=== PATIENT | male | born 1985 | race Caucasian/White ===

== ENCOUNTER → 2018-05-22 | Outpatient (CLI) | payer OTHER | LOC: M LRY 15:01 | DX: R10.811 Right upper quadrant abdominal tenderness (principal); M51.36 Other intervertebral disc degeneration, lumbar region | CPT/HCPCS: 72040 ==

== ENCOUNTER → 2018-05-28 | Outpatient (REF) | payer OTHER ==
[2018-05-28 14:06] LABS: SEMEN APPEARANCE OPAQUE (OPAQUE); SEMEN VISCOSITY LIQUID (LIQUID); SEMEN VOLUME 4.2 ml (4.0-5.0); SPERM CONCENTRATION 130.1 M/ml (>=15.0); WBC CONCENTRATION <=1 M/ml (<=1 M/ml)
[2018-05-28 14:07] LABS: SPERM# 546.3 M/Ejac (>=39); TOTAL FUNCTIONAL 71.2 M/Ejac.; TOTAL PROGRESSIVE SPERM 269.1 M/Ejac.
== END ==
LOC: M LAB REF 13:59
DX: Z31.41 Encounter for fertility testing (principal)

== ENCOUNTER → 2020-12-01 | Outpatient (CLI) | payer OTHER ==
[~2020-12-01] MED LIST: ALLE12TA31 PO
== END ==
LOC: M LABSMTC 12:54
PROVIDERS: ATTEND Anesthesiology
DX: Z01.812 Encounter for preprocedural laboratory examination (principal); Z11.52 Encounter for screening for COVID-19

== ENCOUNTER 2020-12-06 07:21 | Day surgery (SDC) | payer OTHER ==
[~2020-12-06] VITALS: Ht 175.3 cm; Wt 93.8 kg
[~2020-12-06 07:21] MED LIST changes: +LIDOCAINE 1% MDV 20ML VIAL SQ PRN; +LR 1,000 ML IV ONE
[2020-12-06] MEDS ORDERED: LIDOCAINE W/EPINEPHRINE 1% 20ML VIAL As Ordered ONE (08:02)
[2020-12-06] MEDS ORDERED: EPINEPHrine 1MG/ML INJ 30ML MD-VIAL As Ordered ONE (08:03)
[2020-12-06] MEDS ORDERED: METHYLENE BLUE 0.5% (5MG/ML) 10 ML AMP (PROVAYBLUE) As Ordered ONE (08:03)
[2020-12-06] MEDS ORDERED: ACETAMINOPHEN 1000MG 100ML IV BTL (OFIRMEV) (J0131 PER 10MG) As Ordered ONE ×2 (08:18→08:52)
[2020-12-06] MEDS ORDERED: ROCURONIUM BROMIDE 50 MG/5 ML VIAL As Ordered ONE (08:18)
[2020-12-06] MEDS ORDERED: MIDAZOLAM INJ 2MG/2ML VIAL (J2250 PER 1MG) As Ordered ONE (08:18)
[2020-12-06] MEDS ORDERED: LIDOCAINE 2% 100MG/5ML SDV (FOR ANES.) As Ordered ONE (08:18)
[2020-12-06] MEDS ORDERED: propofoL 200 MG/20 ML VIAL As Ordered ONE (08:18)
[2020-12-06] MEDS ORDERED: SUGAMMADEX SODIUM 500 MG/5 ML VIAL (BRIDION) As Ordered ONE (08:18)
[2020-12-06] MEDS ORDERED: ONDANSETRON 4MG/2ML VIAL As Ordered ONE (08:18)
[2020-12-06] MEDS ORDERED: dexameTHASONE 4 MG/ML 1ML VIAL (J1100 PER 1MG) As Ordered ONE (08:18)
[2020-12-06] MEDS ORDERED: fentaNYL 100 MCG/2 ML INJECTION (J3010) As Ordered ONE (08:19)
[2020-12-06] MEDS ORDERED: LACRILUBE (AKWA TEARS) OPHTH OINT 3.5 GM As Ordered ONE (08:23)
[2020-12-06] MEDS ORDERED: METOCLOPRAMIDE INJ 10MG/2ML VIAL (J2765 PER 1) IV PRN (09:35)
[2020-12-06] MEDS ORDERED: LR 1,000 ML IV SCH ×2 (09:35→10:35)
[2020-12-06] MEDS ORDERED: ONDANSETRON 4MG/2ML VIAL IV PRN (09:35)
[2020-12-06] MEDS ORDERED: ACETAMINOPH W/CODEINE #3 TAB UD PO PRN (09:40)
[2020-12-06] MEDS: fentaNYL 100 MCG/2 ML INJECTION (J3010) IV PRN ×2 (09:45→10:00)
--- NOTE | 2020-12-06 10:25 | RO ---
OPERATIVE NOTE DATE OF OPERATION: 12/06/2020 PREOPERATIVE DIAGNOSES: 1. Nasoseptal deviation. 2. Chronic rhinitis. POSTOPERATIVE DIAGNOSES: 1. Nasoseptal deviation. 2. Chronic rhinitis. OPERATIVE PROCEDURES: 1. Septoplasty. 2. Bilateral turbinectomy. SURGEON: Abhijit Spear M.D. WIDE AREA NETWORK ENGINEER: None. ANESTHESIA: General. DESCRIPTION OF PROCEDURE: Under general anesthesia, the patient was intubated. The patient was prepped and draped in the usual manner. I used pledgets soaked in adrenaline 1:1000 and infiltrated with Lidocaine with epinephrine. I started on the left side. I made an incision anterior and laterally in the subperichondrial and periosteal planes. I made an incision in the quadrangular cartilage inferiorly and from the maxillary crest and the ethmoid plate. I then immobilized the maxillary crest, ethmoid plate, and the vomer and removed bone and cartilage in this are, which was deviated. Once this was done, the septum was straight. I closed that incision then with 4-0 Chromic. I made an incision anterior to the inferior turbinate on both sides and elevated the mucosa. I used the microdebrider to remove a portion of the thuan. I closed that incision with 4-0 Vicryl and 4-0 Monocryl. The patient tolerated the procedure well. Patient extubated and transferred to the recovery room in excellent condition. Estimated blood loss 20 mL.
[2020-12-06 11:22] VITALS: BP 123/71
== END 2020-12-06 11:24 | disposition home or self-care (01) ==
LOC: M SDC 07:21
PROVIDERS: ATTEND Otolaryngology
DX: J34.2 Deviated nasal septum (principal); J31.0 Chronic rhinitis
CPT/HCPCS: 30140; 30520; 88300; J0131; J1100; J2250; J2405; J3010; Q9968

== ENCOUNTER → 2021-04-18 | Outpatient (CLI) | payer OTHER ==
[~2021-04-18] MED LIST changes: +GASTROGRAFIN SOLUTION 30ML (Q9963) As Ordered ONE; -LIDOCAINE 1% MDV 20ML VIAL SQ PRN; -LR 1,000 ML IV ONE
--- NOTE | 2021-04-18 17:02 | REP ---
INDICATION: RUQ PAIN. Urinary calculus. COMPARISON: None. TECHNIQUE: CT study of the abdomen and pelvis is acquired without IV but with oral contrast. Helical scanning is performed and 3 mm axial images re-formatted. Coronal and sagittal multiplanar re-formation images are provided. FINDINGS: Digital preliminary foreign language instructor radiograph is unremarkable. The lung bases are clear on axial CT slices. There are 2 small accessory splenules in the left upper quadrant. The liver and spleen are normal in size and homogeneous in texture. Normal adrenal glands are observed bilaterally. No abnormality is visible in the pancreas. The gallbladder is unremarkable. There is no evidence of intrarenal calculus or hydronephrosis on either side. The kidneys appear morphologically intact. Oral contrast is seen opacifying the small bowel throughout the abdomen and the right colon. No obstructive lesion is seen. Large and small bowel loops are unremarkable in the abdomen and pelvis. Urinary bladder, prostate, and seminal vesicles are unremarkable. A normal appendix is seen in the right lower quadrant. No abdominal wall defect is seen. Bone window settings show no bony destructive lesion. IMPRESSION: No acute abdominal or pelvic abnormality. <Electronically signed by Sukhdeep Swan > 04/18/21 [id number]
== END ==
LOC: M RAD 14:47
PROVIDERS: ATTEND Nurse Practitioner Family
DX: R10.11 Right upper quadrant pain (principal); N20.9 Urinary calculus, unspecified

== ENCOUNTER → 2021-04-26 | Outpatient (CLI) | payer OTHER ==
[~2021-04-26] MED LIST changes: -GASTROGRAFIN SOLUTION 30ML (Q9963) As Ordered ONE
[2021-04-26 14:05] LABS: ALBUMIN 4.2 GM/DL (3.2-5.2); ALT/SGPT 32 U/L (12-78); BILIRUBIN,TOTAL 0.4 MG/DL (0.2-1.0); BLOOD UREA NITROGEN 26 MG/DL (7-18); CALCIUM LEVEL 9.8 MG/DL (8.5-10.1); CARBON DIOXIDE LEVEL 28 MEQ/L (21-32); CHLORIDE LEVEL 108 MEQ/L (98-107); GLOMERULAR FILTRATION RATE > 60.0 (>60); GLUCOSE, FASTING 86 MG/DL (70-100); POTASSIUM SERUM 4.9 MEQ/L (3.5-5.1); SODIUM LEVEL 141 MEQ/L (136-145); TOTAL PROTEIN 7.3 GM/DL (6.4-8.2)
[2021-04-26 14:14] LABS: APPEARANCE, URINE CLEAR (CLEAR); BACTERIA, URINE AUTO NEGATIVE (NEGATIVE); BILIRUBIN, URINE AUTO NEGATIVE (NEGATIVE); BLOOD, URINE BLOOD NEGATIVE (NEGATIVE); COLOR, URINE STRAW (YELLOW); GLUCOSE, URINE (UA) AUTO NEGATIVE (NEGATIVE); KETONE, URINE AUTO NEGATIVE (NEGATIVE); LEUKOCYTE ESTERASE, URINE AUTO NEGATIVE (NEGATIVE); NITRITE, URINE AUTO NEGATIVE (NEGATIVE); PROTEIN, URINE AUTO NEGATIVE (NEGATIVE); RBC, URINE AUTO 0 /HPF (0-3); SPECIFIC GRAVITY URINE AUTO 1.016 (1.002-1.035); SQUAMOUS EPITHELIAL CELL UR AU 0 /HPF (0-6); UROBILINOGEN, URINE AUTO 0.2 mg/dL (0.0-2.0); WBC, URINE AUTO 0 /HPF (0-3)
== END ==
LOC: M PLALAB 09:39
PROVIDERS: ATTEND Urology
DX: R31.29 Other microscopic hematuria (principal)
CPT/HCPCS: 36415; 80053; 81001; 88108; G0463

== ENCOUNTER → 2021-04-27 | Outpatient (CLI) | payer OTHER ==
--- NOTE | 2021-04-27 11:16 | REPVR ---
PROCEDURE INFORMATION: Exam: MR Lumbar Spine Without Contrast Exam date and time: 04/27/2021 10:25 AM Age: 35 years old Clinical indication: Patient HX: Low back pain radiating to both legs TECHNIQUE: Imaging protocol: Multiplanar magnetic resonance images of the lumbar spine without intravenous contrast. COMPARISON: CR SPINE LS COMPLETE 05/22/2018 3:09 PM FINDINGS: Vertebrae: The lumbar vertebral bodies are normal in height,signal intensity and alignment.No acute fracture or dislocation is seen. Spinal epidural space: There is no evidence of epidural masses or hemorrhage. Spinal cord: The conus medullaris is normal. The cauda equina nerve roots demonstrate no crowding or displacement. L1-L2: There is no significant degenerative disc herniation.The spinal canal and neural foramina are patent and without significant stenosis. L2-L3: There is no significant degenerative disc herniation.The spinal canal and neural foramina are patent and without significant stenosis. L3-L4: There is no significant degenerative disc herniation.The spinal canal and neural foramina are patent and without significant stenosis. L4-L5: Mildly reduced in height and T2 signal indicating degeneration.Small diffuse posterior herniation. Mild facet arthropathy.There is no evidence of spinal canal narrowing.There is mild bilateral foraminal stenosis. L5-S1: There is a mild diffuse posterior bulge causing mild effacement of the thecal sac.The facet joints demonstrate mild degenerative hypertrophy and sclerosis.There is no evidence of spinal canal narrowing.There is mild bilateral foraminal stenosis. Soft tissues: The prevertebral soft tissues appear normal. IMPRESSION: MRI of the lumbar spine reveals mild multilevel degenerative spondylitic changes and degenerative disc disease as described above. There is no evidence of spinal canal narrowing. Electronically signed by: Kwesi Brian On 04/27/2021 11:16:32 AM
== END ==
LOC: M PLARAD 09:00
PROVIDERS: ATTEND Nurse Practitioner Family
DX: M51.17 Intervertebral disc disorders with radiculopathy, lumbosacral region (principal); M48.061 Spinal stenosis, lumbar region without neurogenic claudication

== ENCOUNTER → 2021-05-04 | Outpatient (CLI) | payer OTHER ==
[~2021-05-04] MED LIST changes: +ISOVUE-370 76% 100ML VIAL As Ordered ONE
--- NOTE | 2021-05-04 09:30 | REP ---
INDICATION: MICRO HEMATURIA. COMPARISON: 04/18/[address] TECHNIQUE: Standard helical technique before and after the intravenous administration of 100 cc Isovue 370. FINDINGS: The lung bases are clear and unchanged. The pre contrast enhanced portion examination again shows hepatic and splenic densities be within normal limits. There is no nephroureterolithiasis, hydronephrosis, or hydroureter. There are no urinary bladder calcifications. There are no choleliths. Note is again made of an incidental simple cyst arising from the posterior segment of the right lobe of the liver status quo. The contrast-enhanced portion examination shows the liver, spleen, pancreas, adrenal glands, and kidneys to be essentially unchanged from the prior exam and unremarkable. The abdominal aorta and para-aortic regions are again seen to be within normal limits. There is no significant change in appearance of the bowel loops or the mesenteries. There is no free fluid or free air. There is no evidence of a mass or adenopathy. Bone window technique throughout the exam shows no significant change in appearance of the osseous structures. Delayed imaging shows complete opacification of the renal collecting system bilaterally. The opacified portion of the urinary bladder shows no evidence of an intraluminal filling defect. IMPRESSION: CT findings are within normal limits. There is an incidental simple cyst arising from the posterior segment of the right lobe of the liver. <Electronically signed by Edmund Arreaga > 05/04/21 [id number]
== END ==
LOC: M RAD 08:35
PROVIDERS: ATTEND Urology
DX: R31.29 Other microscopic hematuria (principal); K76.89 Other specified diseases of liver
CPT/HCPCS: 74178; Q9967

== ENCOUNTER 2022-07-09 09:04 | Emergency (ER) | payer OTHER ==
[~2022-07-09] VITALS: Ht 175.3 cm; Wt 109.0 kg
[~2022-07-09 09:04] MED LIST changes: -ISOVUE-370 76% 100ML VIAL As Ordered ONE
[2022-07-09 11:54] LABS: BASO % 0.4 % (0.0-1.0); EOS # 0.2 10^3/uL (0.0-0.5); HEMOGLOBIN 15.7 g/dl (13.5-17.5); LYMPH # 1.8 10^3/uL (1.5-5.0); LYMPH % 34.1 % (24.0-44.0); MEAN CORPUSCULAR HEMOGLOBIN 26.2 pg (27.0-33.0); MEAN CORPUSCULAR HGB CONC 32.7 g/dl (32.0-36.5); MEAN CORPUSCULAR VOLUME 80.1 fl (80.0-96.0); MONO # 0.4 10^3/uL (0.0-0.8); NEUTROPHILS # 2.9 10^3/uL (1.5-8.5); NEUTROPHILS % 54.1 % (36.0-66.0); PLATELET COUNT, AUTOMATED 215 10^3/uL (150-450); RED BLOOD COUNT 5.99 10^6/uL (4.30-6.10); WHITE BLOOD COUNT 5.4 10^3/uL (4.0-10.0)
[2022-07-09 12:04] LABS: INR 0.92; PROTHROMBIN TIME 12.6 SECONDS (12.5-14.5)
[2022-07-09 12:05] LABS: PARTIAL THROMBOPLASTIN TIME 27.2 SECONDS (24.8-34.2)
[2022-07-09 12:24] LABS: CK-MB VALUE MASS < 1.0 NG/ML (<3.6)
[2022-07-09 12:25] LABS: CPK CREATINE PHOSPHOKINASE 84 U/L (46-171); MB/CK RELATIVE INDEX 1.19 (< OR =4)
[2022-07-09 12:26] LABS: BLOOD UREA NITROGEN 19 MG/DL (9-23); CALCIUM LEVEL 9.1 MG/DL (8.5-10.1); CARBON DIOXIDE LEVEL 27 MMOL/L (20-31); CHLORIDE LEVEL 104 MMOL/L (98-107); GLOMERULAR FILTRATION RATE > 60.0 (>60); GLUCOSE, FASTING 91 MG/DL (60-100); POTASSIUM SERUM 4.4 MMOL/L (3.5-5.1); SODIUM LEVEL 139 MMOL/L (136-145)
[2022-07-09] MEDS ORDERED: ISOVUE-370 76% 100ML VIAL As Ordered ONE (12:33)
[2022-07-09] MEDS ORDERED: KETOROLAC 30 MG/ML 1ML VIAL IV ONE (14:05)
[2022-07-09 14:35] LABS: CK-MB VALUE MASS < 1.0 NG/ML (<3.6)
[2022-07-09 14:37] LABS: CPK CREATINE PHOSPHOKINASE 74 U/L (46-171); MB/CK RELATIVE INDEX 1.35 (< OR =4)
[2022-07-09] MEDS ORDERED: NAPR-837 PO (14:55)
[2022-07-09] MEDS ORDERED: HOLTER MONITOR XX (14:56)
[2022-07-09 15:18] VITALS: BP 110/71
== END 2022-07-09 15:24 | disposition home or self-care (01) ==
LOC: M ED 09:04
DX: R07.89 Other chest pain (principal); Z79.899 Other long term (current) drug therapy
CPT/HCPCS: 71045; 71275; 80048; 82550; 82553; 83880; 84484; 85025; 85610; 85730; 93005; 93041; 94760; 96374; 99284; J1885

== ENCOUNTER → 2022-11-26 | Outpatient (CLI) | payer OTHER ==
[~2022-11-26] MED LIST changes: +HOLTER MONITOR XX; +NAPR-837 PO
== END ==
LOC: M RAD 11:21
PROVIDERS: ATTEND Registered Nurse Community Health
DX: R07.9 Chest pain, unspecified (principal)

== ENCOUNTER → 2022-12-18 | Outpatient (CLI) | payer OTHER | LOC: M RAD 10:00 | PROVIDERS: ATTEND Registered Nurse Community Health | DX: M25.552 Pain in left hip (principal) ==

== ENCOUNTER 2023-04-02 11:58 | Day surgery (SDC) | payer OTHER ==
[~2023-04-02] VITALS: Ht 175.3 cm; Wt 103.0 kg
[~2023-04-02 11:58] MED LIST changes: +ATOR80TA59 PO; +NS 1,000 ML IV ONE; +OMEP-173 PO
[2023-04-02] MEDS ORDERED: fentaNYL 100 MCG/2 ML INJECTION As Ordered ONE (12:52)
[2023-04-02 13:54] VITALS: TEMP 97.8
[2023-04-02 14:06] VITALS: BP 126/71; O2SAT 98
== END 2023-04-02 14:06 | disposition home or self-care (01) ==
LOC: M OPP 11:58
PROVIDERS: ATTEND Internal Medicine Gastroenterology
DX: R12 Heartburn (principal); R07.89 Other chest pain; K21.9 Gastro-esophageal reflux disease without esophagitis; K26.9 Duodenal ulcer, unspecified as acute or chronic, without hemorrhage or perforation; Z79.899 Other long term (current) drug therapy; Z80.8 Family history of malignant neoplasm of other organs or systems
CPT/HCPCS: 43239; 88305; J3010

== ENCOUNTER → 2023-06-23 | Outpatient (REF) | payer OTHER ==
[~2023-06-23] MED LIST changes: -NS 1,000 ML IV ONE
[2023-06-23 13:02] LABS: APPEARANCE, URINE CLEAR (CLEAR); BACTERIA, URINE AUTO NEGATIVE (NEGATIVE); BILIRUBIN, URINE AUTO NEGATIVE (NEGATIVE); BLOOD, URINE BLOOD 1+ (NEGATIVE); COLOR, URINE STRAW (YELLOW); GLUCOSE, URINE (UA) AUTO NEGATIVE (NEGATIVE); KETONE, URINE AUTO NEGATIVE (NEGATIVE); LEUKOCYTE ESTERASE, URINE AUTO NEGATIVE (NEGATIVE); NITRITE, URINE AUTO NEGATIVE (NEGATIVE); PROTEIN, URINE AUTO NEGATIVE (NEGATIVE); RBC, URINE AUTO 1 /HPF (0-3); SPECIFIC GRAVITY URINE AUTO 1.011 (1.002-1.035); SQUAMOUS EPITHELIAL CELL UR AU 0 /HPF (0-6); UROBILINOGEN, URINE AUTO 0.2 mg/dL (0.0-2.0); WBC, URINE AUTO 0 /HPF (0-3)
== END ==
LOC: M SMT 12:31
PROVIDERS: ATTEND Nurse Practitioner Family
DX: R31.29 Other microscopic hematuria (principal)
CPT/HCPCS: 51798; 81001; 88108; G0463

== ENCOUNTER → 2023-07-16 | Outpatient (CLI) | payer OTHER ==
[~2023-07-16] MED LIST changes: +PROHANCE 279.3MG/ML 15ML VIAL ONE; +PROHANCE 279.3MG/ML 5ML VIAL ONE
== END ==
LOC: M PLAIMG 08:07
PROVIDERS: ATTEND Surgery
DX: R10.9 Unspecified abdominal pain (principal)
CPT/HCPCS: 74183; A9576

== ENCOUNTER → 2023-08-15 | Outpatient (CLI) | payer OTHER ==
[~2023-08-15] MED LIST changes: -PROHANCE 279.3MG/ML 15ML VIAL ONE; -PROHANCE 279.3MG/ML 5ML VIAL ONE
[2023-08-15 11:22] LABS: ALBUMIN 3.8 G/DL (3.2-5.2); ALKALINE PHOSPHATASE 123 U/L (46-116); ALT/SGPT 45 U/L (7.0-40); AST/SGOT 16 U/L (<34); BILIRUBIN,DIRECT 0.1 MG/DL (<0.4); BILIRUBIN,TOTAL 0.4 MG/DL (0.3-1.2); IRON (FE) 69 UG/DL (65-175); TOTAL IRON BINDING CAPACITY 314 UG/DL (250-425); TOTAL PROTEIN 6.8 G/DL (5.7-8.2)
[2023-08-15 12:03] LABS: HEPATITIS B CORE ANTIBODY IGM NEGATIVE (NEGATIVE); HEPATITIS C VIRUS ABY INDEX < 0.02 INDEX (<0.8)
== END ==
LOC: M LAB 08:47
PROVIDERS: ATTEND Internal Medicine Gastroenterology
DX: R74.01 Elevation of levels of liver transaminase levels (principal)

== ENCOUNTER → 2023-09-10 | Outpatient (CLI) | payer OTHER ==
[~2023-09-10] MED LIST changes: +ISOVUE-300 61% 100ML VIAL As Ordered ONE; +LIDOCAINE 1% MDV 20ML VIAL As Ordered ONE; +PROHANCE 279.3MG/ML 5ML VIAL As Ordered ONE
== END ==
LOC: M RAD 06:39
PROVIDERS: ATTEND Student in an Organized Health Care Education/Training Program
DX: S76.012D Strain of muscle, fascia and tendon of left hip, subsequent encounter (principal)
CPT/HCPCS: 27093; 73723; 77002; A9576; Q9967

== ENCOUNTER → 2023-09-26 | Outpatient (CLI) | payer OTHER ==
[~2023-09-26] MED LIST changes: -ISOVUE-300 61% 100ML VIAL As Ordered ONE; -LIDOCAINE 1% MDV 20ML VIAL As Ordered ONE; -PROHANCE 279.3MG/ML 5ML VIAL As Ordered ONE
== END ==
LOC: M RAD 11:26
PROVIDERS: ATTEND Surgery
DX: R10.11 Right upper quadrant pain (principal)
CPT/HCPCS: 78227; A9537

== ENCOUNTER → 2023-10-28 | Outpatient (CLI) | payer OTHER ==
[~2023-10-28] MED LIST changes: +ISOVUE-300 61% 100ML VIAL As Ordered ONE; +LIDOCAINE 1% MDV 20ML VIAL As Ordered ONE; +TRIAMCINOLONE ACETONIDE SUSP 40MG/ML 1ML VIAL As Ordered ONE
== END ==
LOC: M RAD 15:09
PROVIDERS: ATTEND Student in an Organized Health Care Education/Training Program
DX: S76.012D Strain of muscle, fascia and tendon of left hip, subsequent encounter (principal); S73.192A Other sprain of left hip, initial encounter; X58.XXXA Exposure to other specified factors, initial encounter; Y92.9 Unspecified place or not applicable
CPT/HCPCS: 20610; 77002; J3301; Q9967

== ENCOUNTER 2023-10-31 06:53 | Day surgery (SDC) | payer OTHER ==
[~2023-10-31] VITALS: Ht 175.3 cm; Wt 110.7 kg
[~2023-10-31 06:53] MED LIST changes: -ISOVUE-300 61% 100ML VIAL As Ordered ONE; -LIDOCAINE 1% MDV 20ML VIAL As Ordered ONE; -TRIAMCINOLONE ACETONIDE SUSP 40MG/ML 1ML VIAL As Ordered ONE
[2023-10-31] MEDS: NS 1,000 ML IV ONE (07:13)
[2023-10-31 08:23] VITALS: TEMP 97.1
[2023-10-31 08:40] VITALS: BP 128/73; O2SAT 97
[2023-10-31] MEDS ORDERED: propofoL 500 MG/50 ML VIAL As Ordered ONE (08:47)
== END 2023-10-31 08:46 | disposition home or self-care (01) ==
LOC: M OPP 06:53
PROVIDERS: ATTEND Internal Medicine Gastroenterology
DX: K64.8 Other hemorrhoids (principal); K57.30 Diverticulosis of large intestine without perforation or abscess without bleeding; R19.4 Change in bowel habit; R10.11 Right upper quadrant pain; R10.31 Right lower quadrant pain; G47.9 Sleep disorder, unspecified; F17.290 Nicotine dependence, other tobacco product, uncomplicated; Z79.02 Long term (current) use of antithrombotics/antiplatelets; Z79.899 Other long term (current) drug therapy

== ENCOUNTER → 2024-12-10 | Outpatient (CLI) | payer OTHER | LOC: M WUC 12:05 | PROVIDERS: ATTEND Registered Nurse | DX: S80.251A Superficial foreign body, right knee, initial encounter (principal) ==